=== PATIENT | male | born 1990 | race Two or more races ===

== ENCOUNTER 2020-09-02 00:20 | Emergency (ER) | payer MEDICAID, OTHER ==
[~2020-09-02] VITALS: Ht 180.3 cm; Wt 118.2 kg
[~2020-09-02 00:20] MED LIST: CITA40TA14 PO; DIVA-80 PO
[2020-09-02] MEDS ORDERED: FLUO-191 PO (00:58)
[2020-09-02] MEDS ORDERED: FERR325T23 PO (00:58)
[2020-09-02] MEDS ORDERED: PANT40TA54 PO (00:58)
[2020-09-02] MEDS ORDERED: MULT-264 PO (00:59)
[2020-09-02 01:12] LABS: COVID AG,FIA SOURCE NASOPHARYNGEAL
[2020-09-02 01:24] LABS: BASOPHILS % (AUTO) 0.4 % (0.0-2.0); EOSINOPHILS % (AUTO) 0 % (1.0-6.0); HEMATOCRIT 40.7 % (41-53); HEMOGLOBIN 13.2 g/dL (13.5-17.5); LYMPHOCYTES # (AUTO) 1.2 K/uL (1.0-4.8); LYMPHOCYTES % (AUTO) 8.7 % (22.0-44.0); MEAN CORPUSCULAR HEMOGLOBIN 26.9 pg (26.0-34.0); MEAN CORPUSCULAR HGB CONC 32.4 G/dL (31.0-37.0); MEAN CORPUSCULAR VOLUME 83 fL (80-100); MONOCYTES # (AUTO) 0.4 K/uL (0.1-1.0); MONOCYTES % (AUTO) 3.1 % (2.0-9.0); NEUTROPHILS # (AUTO) 12.4 K/uL (1.8-7.7); PLATELET COUNT (AUTO) 191 K/uL (150-450); RED CELL DISTRIBUTION WIDTH 20.2 % (11.5-14.5)
[2020-09-02 01:27] LABS: ANION GAP 13 mmol/L (8-16); CALCIUM, TOTAL 9.8 mg/dL (8.8-10.5); CARBON DIOXIDE 26 mmol/L (22-29); CHLORIDE 100 mmol/L (98-107); CREATININE 1.02 mg/dL (0.60-1.30); GLOMERULAR FILTR. RATE CALC > 60 mL/min (>60); GLUCOSE,RANDOM 108 mg/dL (70-110); POTASSIUM 3.6 mmol/L (3.5-5.1); SODIUM SERUM 139 mmol/L (136-145); UREA NITROGEN, BLOOD 18 mg/dL (7-18)
[2020-09-02 01:34] LABS: ACETAMINOPHEN < 2 mcg/mL (10-30); ALANINE AMINOTRANSFERASE 99 U/L (12-78); ALBUMIN 4.7 g/dL (3.4-5.0); ALKALINE PHOSPHATASE 262 U/L (46-116); ASPARTATE AMINOTRANSFERASE 49 U/L (15-37); BILIRUBIN,TOTAL 0.7 mg/dL (0.1-1.0); TOTAL PROTEIN, SERUM 8.2 g/dL (6.4-8.2)
[2020-09-02 01:35] LABS: SALICYLATE 0.9 mg/dL (2.8-20.0)
[2020-09-02 01:41] LABS: AMPHET/METH SCREEN,URINE NEGATIVE (NEGATIVE); BARBITURATE SCREEN, URINE NEGATIVE (NEGATIVE); BENZODIAZEPINES SCREEN,URINE POSITIVE (NEGATIVE); CANNABINOID SCREEN,URINE POSITIVE (NEGATIVE); COCAINE SCREEN,URINE NEGATIVE (NEGATIVE); METHADONE SCREEN, URINE NEGATIVE (NEGATIVE); OPIATE SCREEN,URINE NEGATIVE (NEGATIVE)
[2020-09-02] MEDS ORDERED: IOHEXOL 350 MG/ML 100 ML VIAL ONE (01:42)
[2020-09-02] MEDS ORDERED: SODIUM CHLORIDE 0.9% 100 ML ONE (01:42)
[2020-09-02 01:43] LABS: PHENCYCLIDINE SCREEN,URINE NEGATIVE (NEGATIVE)
[2020-09-02 01:57] LABS: NEUTROPHILS % (AUTO) 87.8 % (40.0-70.0); PLATELET MORPHOLOGY COMMENT LARGE PLTS PRESENT
[2020-09-02] MEDS ORDERED: LIDOCAINE 1% 10 ML VIAL ID ONE (03:45)
[2020-09-02 05:25] VITALS: BP 127/69
== END 2020-09-02 05:41 | disposition home or self-care (01) ==
LOC: EMS 00:21
DX: S01.412A Laceration without foreign body of left cheek and temporomandibular area, initial encounter (principal); F31.9 Bipolar disorder, unspecified; F17.210 Nicotine dependence, cigarettes, uncomplicated; F12.90 Cannabis use, unspecified, uncomplicated; F13.90 Sedative, hypnotic, or anxiolytic use, unspecified, uncomplicated; Z20.822 Contact with and (suspected) exposure to COVID-19; W45.8XXA Other foreign body or object entering through skin, initial encounter; Y93.89 Activity, other specified; Y92.89 Other specified places as the place of occurrence of the external cause; Y99.8 Other external cause status
CPT/HCPCS: 12013; 12053; 36415; 70498; 80053; 80307; 85025; 87426; 99285; A9575; G0480; J3490; J7050; G0481